=== PATIENT | female | born 1985 | race Caucasian/White ===

== ENCOUNTER 2020-11-15 15:04 | Emergency (ER) | payer SELFPAY ==
[~2020-11-15] VITALS: Ht 175.3 cm; Wt 117.5 kg
[2020-11-15 15:16] VITALS: BP 164/86
--- NOTE | 2020-11-15 15:45 | NUR ---
AMBULATED TO BED 6
--- NOTE | 2020-11-15 15:51 | NUR ---
35/F presents to ED with c/o lower abdominal pain and vaginal bleeding x1 week. Patient states she began having intermittent lower abdominal pain one week followed by vaginal bleeding. Patient states she took two tests at home two weeks ago that were positive, states she was seen at a clinic two weeks ago and was told she was . Patient c/o intermittent nausea and dizziness, denies vomiting or diarrhea, denies dysuria. Patient states bleeding has been light and is not comparable to her menstrual period. Patient states she currently is having intermittent 7/10 sharp lower abdominal pain,denies taking anything for pain. LMP 11/01/20
--- NOTE | 2020-11-15 16:00 | NUR ---
Ultrasound at bedside
[2020-11-15 16:08] LABS: BASOPHILS # (AUTO) 0.1 K/uL (0.00-0.22); BASOPHILS % (AUTO) 0.7 % (0.0-2.0); EOSINOPHILS # (AUTO) 0.2 K/uL (0-0.4); EOSINOPHILS % (AUTO) 1.7 % (0.0-4.0); HEMATOCRIT 36.4 % (36-48); HEMOGLOBIN 11.9 g/dL (12.0-16.0); LYMPHOCYTES # (AUTO) 1.7 K/uL (2.5-16.5); LYMPHOCYTES % (AUTO) 18.6 % (20.5-51.1); MEAN CORPUSCULAR HEMOGLOBIN 27 pg (27-31); MEAN CORPUSCULAR HGB CONC 33 g/dL (33-37); MEAN CORPUSCULAR VOLUME 81.1 fL (80-94); MONOCYTES # (AUTO) 0.5 K/uL (0.8-1.0); MONOCYTES % (AUTO) 5.6 % (1.7-9.3); NEUTROPHILS # (AUTO) 6.7 K/uL (1.8-7.7); NEUTROPHILS % (AUTO) 73.4 % (42.2-75.2); PLATELET COUNT (AUTO) 210 K/uL (140-450); RED BLOOD CELL COUNT(AUTO) 4.49 MIL/uL (4.20-5.40); RED CELL DISTRIBUTION WIDTH 15.7 % (11.6-13.7); WHITE BLOOD COUNT (AUTO) 9.1 K/uL (4.8-10.8)
[2020-11-15 16:22] LABS: APPEARANCE,URINE CLEAR (CLEAR); BILIRUBIN,URINE 1+ (NEGATIVE); BLOOD, URINE 3+ (NEGATIVE); COLOR,URINE RED (YELLOW); LEUKOCYTE ESTERASE ,URINE TRACE (NEGATIVE); NITRITE, URINE NEGATIVE (NEGATIVE); PH,URINE 6.5 (5.0-9.0); UGLUCOSE NEGATIVE (NEGATIVE)
[2020-11-15 16:48] LABS: RBC,URINE 11-20 (MOD) /HPF (0-5); WBC,URINE 0-5 /HPF (0-5)
[2020-11-15] MEDS ORDERED: NITR100C7 PO (17:32)
[2020-11-15 18:21] VITALS: BP 135/78
== END 2020-11-15 18:20 | disposition home or self-care (01) ==
LOC: MED 15:04
DX: O03.9 Complete or unspecified spontaneous abortion without complication (principal)
CPT/HCPCS: 36415; 76817; 81001; 81025; 84702; 85025; 86900; 86901; 99284